=== PATIENT | male | born 1995 | race African-American/Black ===

== ENCOUNTER 2018-11-23 21:55 | Emergency (ER) | payer BC, OTHER ==
[2018-11-23 23:27] LABS: Absolute Lymphocytes (CBC) 2.1 K/uL (0.7-4.9); Absolute Monocytes 1.3 K/uL (0.1-1.3); Absolute Neutrophil 11.1 K/uL (1.8-8.0); Basophils % 0.2 % (0-1.3); Eosinophils % 0.6 % (0-4.4); Hematocrit 43.5 % (39.6-49.0); Lymphocytes % 14.6 % (15.3-44.8); MPV 9.7 fL (7.6-11.3); Protime INR 0.96; RBC Red Blood Cell Count 4.98 M/uL (4.33-5.43)
[2018-11-23] MEDS ORDERED: ONDANSETRON 4 MG/2 ML VIAL ONE (23:40)
[2018-11-23] MEDS ORDERED: NA CHLORIDE 0.9% 1,000 ML ONE (23:40)
[2018-11-23] MEDS ORDERED: FAMOTIDINE 20 MG/2 ML VIAL IV ONE (23:40)
[2018-11-23 23:43] LABS: ALT/SGPT 58 U/L (12-78); AST/SGOT 30 U/L (15-37); Albumin 4.2 g/dL (3.4-5.0); Alkaline Phosphatase 59 U/L (45-117); BUN Blood Urea Nitrogen 21 mg/dL (7-18); Bicarbonate 28 mmol/L (21-32); Bilirubin Direct 0.1 mg/dL (0-0.2); Bilirubin Total 0.4 mg/dL (0.2-1.0); Glucose Level 99 mg/dL (74-106); Lipase 88 U/L (73-393); Magnesium 2.2 mg/dL (1.8-2.4); Potassium 3.7 mmol/L (3.5-5.1); Protein, Total 8.7 g/dL (6.4-8.2); Sodium Level 142 mmol/L (136-145); Troponin (Emerg Dept Use Only) < 0.02 ng/mL (0.0-0.045)
[2018-11-23 23:45] LABS: NT PRO-BNP < 5 pg/mL (<125)
--- NOTE | 2018-11-24 02:35 | EDPHYS ---
Physician Documentation [facility] Name: Zaid Moore Age: 22 yrs Sex: Male : 1995 Arrival Date: 11/23/2018 Time: 21:57 Bed 20 Private MD: Michael Crandall ED Physician Clinton Delgado HPI: 11/23 22:45 This 22 yrs old Black Male presents to ER via Ambulatory with complaints of Chest Pain. cp 22:45 The patient or guardian reports chest pain that is located primarily in the substernal cp area, epigastric area. 22:45 The pain does not radiate. cp 22:45 The chest pain is described as aching. cp 22:45 Duration: The patient or guardian reports multiple episodes, that are intermittent. cp Modifying factors: the symptoms are aggravated by eating. Historical: - Allergies: 22:03 No Known Allergies; lp1 - Home Meds: 22:03 Nexium Oral [Active]; lp1 - PMHx: 22:03 None; lp1 - PSHx: 22:03 Knee surgery; lp1 - Immunization history:: Adult Immunizations up to date. - Social history:: Smoking status: Patient/guardian denies using tobacco. - Ebola Screening: : No symptoms or risks identified at this time. ROS: 23:00 Constitutional: Negative for body aches, chills, fever, poor PO intake. cp 23:00 Eyes: Negative for injury, pain, redness, and discharge. cp 23:00 ENT: Negative for drainage from ear(s), ear pain, sore throat, difficulty swallowing, difficulty handling secretions. 23:00 Cardiovascular: Positive for chest pain, Negative for edema, palpitations. 23:00 Respiratory: Negative for cough, shortness of breath, wheezing. 23:00 Abdomen/GI: Positive for abdominal pain, nausea, vomiting, of the epigastric area, Negative for diarrhea, constipation, dysphagia, hematemesis, black/tarry stool, rectal bleeding. 23:00 Back: Negative for pain at rest, pain with movement, radiated pain. 23:00 : Negative for urinary symptoms, testicular pain 23:00 Skin: Negative for cellulitis, rash. 23:00 Neuro: Negative for altered mental status, headache, syncope, weakness. 23:00 All other systems are negative. Exam: 23:05 Constitutional: The patient appears in no acute distress, alert, awake, cp non-diaphoretic, non-toxic, well developed, well nourished. 23:05 Head/Face: Normocephalic, atraumatic. cp 23:05 Eyes: Periorbital structures: appear normal, Conjunctiva: normal, no exudate, no cp injection, Sclera: no appreciated abnormality, Lids and lashes: appear normal, bilaterally. 23:05 ENT: Nares patent. No nasal discharge, no septal abnormalities noted. Tympanic cp membranes are normal and external auditory canals are clear. Oropharynx with no redness, swelling, or masses, exudates, or evidence of obstruction, uvula midline. Mucous membranes moist. Neck: Trachea midline, no thyromegaly or masses palpated, and no cervical lymphadenopathy. Supple, full range of motion without nuchal rigidity, or vertebral point tenderness. No Meningismus. 23:05 Chest/axilla: Inspection: normal, Palpation: crepitus, is not appreciated, tenderness, that is mild, of the xyphoid area and mid-sternal area. 23:05 Cardiovascular: Rate: normal, Rhythm: regular, Pulses: Pulses are 2+ in right radial artery and left radial artery. Edema: is not appreciated, JVD: is not appreciated. 23:05 Respiratory: the patient does not display signs of respiratory distress, Respirations: normal, no use of accessory muscles, no retractions, no splinting, no tachypnea, labored breathing, is not present, Breath sounds: are clear throughout, no decreased breath sounds, no stridor, no wheezing. 23:05 Abdomen/GI: Inspection: abdomen appears normal, Bowel sounds: active, all quadrants, Palpation: soft, in all quadrants, moderate abdominal tenderness, in the epigastric area, rebound tenderness, is not appreciated, involuntary guarding, is not appreciated. 23:05 Back: pain, is absent, ROM is normal. 23:05 Skin: cellulitis, is not appreciated, no rash present. 23:05 Neuro: Orientation: to person, place \T\ time. Mentation: is normal, Cerebellar function: is grossly normal, Motor: moves all fours, strength is normal, Sensation: is normal. 23:36 ECG was reviewed by the Attending Physician. cp Vital Signs: 22:01 BP 152 / 103; Pulse 95; Resp 18; Temp 99.2(O); Pulse Ox 100% on R/A; Weight 117.93 kg lp1 (R); Height 5 ft. 9 in. (175.26 cm); Pain 9/10; 23:11 BP 142 / 80; Pulse 42; Resp 24; Pulse Ox 99% on R/A; ed1 23:34 BP 134 / 85; Pulse 74; Resp 12; Pulse Ox 100% on 2 lpm NC; Pain 6/10; ed1 11/24 00:44 BP 138 / 71; Pulse 90; Resp 27; Pulse Ox 99% on R/A; Pain 5/10; ed1 01:27 BP 138 / 72; Pulse 82; Resp 15; Pulse Ox 99% on 2 lpm NC; Pain 4/10; ed1 02:04 BP 121 / 75; Pulse 81; Resp 16; Pulse Ox 97% on R/A; Pain 0/10; ed1 11/23 22:01 Body Mass Index 38.39 (117.93 kg, 175.26 cm) lp1 MDM: 11/23 22:09 Patient medically screened. 11/24 02:30 Data reviewed: vital signs, nurses notes, lab test result(s), EKG, radiologic studies, cp CT scan, plain films. 02:30 Differential diagnosis: acute myocardial infarction, acute pericarditis, cholecystitis, cp Cholelithiasis esophagitis, gastritis, gastroesophageal reflux disease (GERD), pericarditis, pneumonia, pneumothorax. Test interpretation: by ED physician or midlevel provider: ECG, plain radiologic studies. Counseling: I had a detailed discussion with the patient and/or guardian regarding: the historical points, exam findings, and any diagnostic results supporting the discharge/admit diagnosis, lab results, radiology results, the need for outpatient follow up, a family practitioner, to return to the emergency department if symptoms worsen or persist or if there are any questions or concerns that arise at home. Response to treatment: the patient's symptoms have mildly improved after treatment, and as a result, I will discharge patient. 11/23 22:54 Order name: Basic Metabolic Panel; Complete Time: 23:47 cp 11/23 23:48 Interpretation: Normal except: BUN 21; CRE 1.43; GFR 74. 11/23 22:54 Order name: CBC with Diff; Complete Time: 23:37 cp 11/23 23:38 Interpretation: Normal except: WBC 14.7; HEATHER% 75.6; LYM% 14.6; NEUT A 11.1. cp 11/23 22:54 Order name: LFT's; Complete Time: 23:47 cp 11/23 23:48 Interpretation: Normal except: TP 8.7; GLOB 4.5; A/G 0.9. cp 11/23 22:54 Order name: Magnesium; Complete Time: 23:47 cp 11/23 22:54 Order name: NT PRO-BNP; Complete Time: 23:47 cp 11/23 22:54 Order name: PT-INR; Complete Time: 23:37 cp / 22:54 Order name: Troponin (emerg Dept Use Only); Complete Time: 23:47 cp 11/23 22:54 Order name: XRAY Chest (1 view) cp 11/23 22:54 Order name: Lipase; Complete Time: 23:47 cp 11/23 22:55 Order name: US Abdomen Limited cp 11/23 23:52 Order name: CT Abd/Pelvis - W/Contrast: no oral contrast cp 11/23 22:09 Order name: EKG; Complete Time: 22:09 cp 11/23 22:09 Order name: EKG - Nurse/Tech; Complete Time: 22:25 cp 11/23 22:54 Order name: Cardiac monitoring; Complete Time: 23:23 cp 11/23 22:54 Order name: IV Saline Lock; Complete Time: 23:23 cp 11/23 22:54 Order name: Labs collected and sent; Complete Time: 23:23 cp 11/23 22:54 Order name: O2 Per Protocol; Complete Time: 23:23 cp 11/23 22:54 Order name: O2 Sat Monitoring; Complete Time: 23:23 cp 11/23 22:55 Order name: NPO; Complete Time: 23:16 cp EC/19 23:36 Rate is 90 beats/min. Rhythm is regular. TN interval is normal. QRS interval is normal. cp QT interval is normal. T waves are Flattened in lead III. Interpreted by me. Reviewed by me. Administered Medications: 23:33 Drug: Pepcid 20 mg Route: IVP; Site: right antecubital; ed1 11/24 01:29 Follow up: Response: No adverse reaction ed1 11/23 23:33 Drug: Zofran 4 mg Route: IVP; Site: right antecubital; ed1 11/24 01:29 Follow up: Response: No adverse reaction; Nausea is decreased ed1 11/23 23:34 Drug: NS 0.9% 1000 ml Route: IV; Rate: 1 bolus; Site: right antecubital; ed1 11/24 01:29 Follow up: IV Status: Completed infusion; IV Intake: 1000ml ed1 Disposition: 06:12 Co-signature as Attending Physician, Clinton Delgado MD I agree with the assessment and tw4 plan of care. Disposition: 11/24/18 02:34 Discharged to Home. Impression: Epigastric pain, Other chest pain. - Condition is Stable. - Discharge Instructions: Nonspecific Chest Pain, Gastroesophageal Reflux Disease, Adult. - Prescriptions for Carafate 1 gram Oral Tablet - take 2 tablets by ORAL route every 12 hours take on an empty stomach, beginning on waking and last dose at bedtime. dissolve in small amount warm water prior to ingestion; 100 tablet. - Work release form, Medication Reconciliation Form, Thank You Letter, Antibiotic Education, Prescription Opioid Use form. - Follow up: Osmin Busch MD; When: 2 - 3 days; Reason: Recheck today's complaints. - Problem is new. - Symptoms have improved. Signatures: Dispatcher [employer] EDMS Deborah Matos RN RN ed1 Prudence Arias RN RN lp1 Farhad Hayes PA PA cp Wadley, Terrence, MD MD tw4 Corrections: (The following items were deleted from the chart) 02:47 02:34 11/24/2018 02:34 Discharged to Home. Impression: Epigastric pain; Other chest ed1 pain. Condition is Stable. Forms are Medication Reconciliation Form, Thank You Letter, Antibiotic Education, Prescription Opioid Use. Follow up: Osmin Busch; When: 2 - 3 days; Reason: Recheck today's complaints. Problem is new. Symptoms have improved. cp
--- NOTE | 2018-11-24 02:35 | ER ---
Nurse's Notes [facility] Name: Zaid Moore Age: 22 yrs Sex: Male : 1995 Arrival Date: 11/23/2018 Time: 21:57 Bed 20 Private MD: Michael Crandall Diagnosis: Epigastric pain;Other chest pain Presentation: 11/23 21:59 Presenting complaint: Patient states: Chest pain on and off for about 2 weeks; States lp1 "It happens anytime I try to eat"; Has been taking Nexium with no relief; Reports nausea, vomiting; Denies fever, diarrhea. Transition of care: patient was not received from another setting of care. Onset of symptoms was November 23, 2018. Risk Assessment: Do you want to hurt yourself or someone else? Patient reports no desire to harm self or others. Initial Sepsis Screen: Does the patient meet any 2 criteria? No. Patient's initial sepsis screen is negative. Does the patient have a suspected source of infection? No. Patient's initial sepsis screen is negative. Care prior to arrival: None. 21:59 Method Of Arrival: Ambulatory lp1 21:59 Acuity: MORENA 3 lp1 Historical: - Allergies: 22:03 No Known Allergies; lp1 - Home Meds: 22:03 Nexium Oral [Active]; lp1 - PMHx: 22:03 None; lp1 - PSHx: 22:03 Knee surgery; lp1 - Immunization history:: Adult Immunizations up to date. - Social history:: Smoking status: Patient/guardian denies using tobacco. - Ebola Screening: : No symptoms or risks identified at this time. Screenin:03 Abuse screen: Denies threats or abuse. Denies injuries from another. Nutritional ed1 screening: No deficits noted. Tuberculosis screening: No symptoms or risk factors identified. Fall Risk None identified. Assessment: 22:03 General: Appears uncomfortable, Behavior is calm, cooperative. Pain: Complains of pain ed1 in epigastric area Pain does not radiate. Pain currently is 6 out of 10 on a pain scale. Quality of pain is described as aching, Pain began 1 day ago. Is continuous. Neuro: Level of Consciousness is awake, alert, obeys commands, Oriented to person, place, time, situation. Cardiovascular: Heart tones S1 S2 present Capillary refill < 3 seconds in bilateral fingers Patient's skin is warm and dry. Respiratory: Airway is patent Respiratory effort is even, unlabored, Respiratory pattern is regular, symmetrical, Breath sounds are clear bilaterally. GI: Abdomen is non-distended, Bowel sounds present X 4 quads. Abd is soft and non tender X 4 quads. Reports nausea, Patient currently denies diarrhea, vomiting. : No signs and/or symptoms were reported regarding the genitourinary system. EENT: No signs and/or symptoms were reported regarding the EENT system. Derm: Skin is intact, is healthy with good turgor, Skin is dry, Skin is normal, Skin temperature is warm. Musculoskeletal: Circulation, motion, and sensation intact. Range of motion: intact in all extremities. 23:11 Reassessment: Pt reports feeling like he is going to pass out. Derm: Skin is ed1 diaphoretic. 23:34 Reassessment: Patient and/or family updated on plan of care and expected duration. Pain ed1 level reassessed. Patient is alert, oriented x 3, equal unlabored respirations, skin warm/dry/pink. Patient states symptoms have improved. 11/24 00:44 Reassessment: Patient appears in no apparent distress at this time. Patient and/or ed1 family updated on plan of care and expected duration. Pain level reassessed. Patient is alert, oriented x 3, equal unlabored respirations, skin warm/dry/pink. Patient states feeling better. Patient states symptoms have improved. 01:27 Reassessment: Patient appears in no apparent distress at this time. Patient and/or ed1 family updated on plan of care and expected duration. Pain level reassessed. Patient is alert, oriented x 3, equal unlabored respirations, skin warm/dry/pink. Patient states feeling better. Patient states symptoms have improved. 02:04 Reassessment: Patient appears in no apparent distress at this time. Patient and/or ed1 family updated on plan of care and expected duration. Pain level reassessed. Patient is alert, oriented x 3, equal unlabored respirations, skin warm/dry/pink. Patient denies pain at this time. Patient states feeling better. Patient states symptoms have improved. Vital Signs: 11/23 22:01 BP 152 / 103; Pulse 95; Resp 18; Temp 99.2(O); Pulse Ox 100% on R/A; Weight 117.93 kg lp1 (R); Height 5 ft. 9 in. (175.26 cm); Pain 9/10; 23:11 BP 142 / 80; Pulse 42; Resp 24; Pulse Ox 99% on R/A; ed1 23:34 BP 134 / 85; Pulse 74; Resp 12; Pulse Ox 100% on 2 lpm NC; Pain 6/10; ed1 03 00:44 BP 138 / 71; Pulse 90; Resp 27; Pulse Ox 99% on R/A; Pain 5/10; ed1 01:27 BP 138 / 72; Pulse 82; Resp 15; Pulse Ox 99% on 2 lpm NC; Pain 4/10; ed1 02:04 BP 121 / 75; Pulse 81; Resp 16; Pulse Ox 97% on R/A; Pain 0/10; ed1 11/23 22:01 Body Mass Index 38.39 (117.93 kg, 175.26 cm) lp1 ED Course: 11/23 21:57 Patient arrived in ED. es 21:58 Michael Crandall MD is Private Physician. es 22:01 Triage completed. lp1 22:02 Arm band placed on. lp1 22:03 Patient has correct armband on for positive identification. Placed in gown. Bed in low ed1 position. Call light in reach. Side rails up X 1. Adult w/ patient. technology professional on. Pulse ox on. NIBP on. 22:03 Patient maintains SpO2 saturation greater than 95% on room air. ed1 22:09 Farhad Hayes PA is PHCP. cp 22:09 Clinton Delgado MD is Attending Physician. cp 22:13 Deborah Matos, MORGAN is Primary Nurse. ed1 22:25 EKG done, by ED staff, reviewed by Clinton Delgado MD. ed1 23:09 US Abdomen Limited In Process Unspecified. EDMS 23:16 Initial lab(s) drawn, by me, sent to lab. Inserted saline lock: 20 gauge in right ed1 antecubital area, using aseptic technique. Blood collected. 23:29 X-ray completed. Portable x-ray completed in exam room. Patient tolerated procedure kw well. 23:30 XRAY Chest (1 view) In Process Unspecified. EDMS 11/24 00:[address] Scan. ed1 01:[address] Scan. ed1 01:[address] via wheelchair. kw1 01:56 CT completed. Patient tolerated procedure well. Patient moved back from CT. kw1 02:08 CT Abd/Pelvis - W/Contrast: no oral contrast In Process Unspecified. EDMS 02:33 Osmin Busch MD is Referral Physician. cp 02:46 No provider procedures requiring assistance completed. IV discontinued, intact, ed1 bleeding controlled, No redness/swelling at site. Pressure dressing applied. Administered Medications: 03 23:33 Drug: Pepcid 20 mg Route: IVP; Site: right antecubital; ed1 11/24 01:29 Follow up: Response: No adverse reaction ed1 11/23 23:33 Drug: Zofran 4 mg Route: IVP; Site: right antecubital; ed1 11/24 01:29 Follow up: Response: No adverse reaction; Nausea is decreased ed1 11/23 23:34 Drug: NS 0.9% 1000 ml Route: IV; Rate: 1 bolus; Site: right antecubital; ed1 11/24 01:29 Follow up: IV Status: Completed infusion; IV Intake: 1000ml ed1 Intake: 01:29 IV: 1000ml; Total: 1000ml. ed1 Outcome: 02:34 Discharge ordered by MD. cp 02:46 Discharged to home ambulatory, with family. ed1 02:46 Condition: good 02:46 Discharge instructions given to patient, Instructed on discharge instructions, follow up and referral plans. medication usage, Demonstrated understanding of instructions, follow-up care, medications, Prescriptions given X 1. 02:47 Patient left the ED. ed1 Signatures: Dispatcher [employer] EDEnid Mcguire Erika RN RN ed1 Kathryn Solis Laura, RN RN lp1 Farhad Hayes PA PA cp Wilhelm, Kimberly kw1
[2018-11-24 02:54] VITALS: TEMP 99.2
[2018-11-24 03:01] VITALS: BP 121/75; O2SAT 97
--- NOTE | 2018-11-24 07:41 | EKG ---
Test Date: 2018-11-23 Test Time: 22:19:41 Dye Room Helper: SHANITA MEASUREMENT RESULTS: Intervals: Rate: 90 WI: 154 QRSD: 92 QT: 358 QTc: 437 [place]: P: 44 WI: 154 QRS: 14 T: 34 INTERPRETIVE STATEMENTS: Normal sinus rhythm Normal ECG Compared to ECG 01/24/2000 08:10:00 No significant changes Electronically Signed On 11-24-18 07:40:39 CDT by Kelvin Damon
--- NOTE | 2018-11-24 08:17 | RAD REPORT ---
EXAM DESCRIPTION: US - Abdomen Exam Limited - 11/23/2018 11:09 pm CLINICAL HISTORY: Abdominal pain. COMPARISON: None. FINDINGS: The gallbladder wall is not thickened. A gallstone is not seen. The biliary tree is normal caliber. IMPRESSION: Unremarkable gallbladder ultrasound.
--- NOTE | 2018-11-24 08:31 | RAD REPORT ---
EXAM DESCRIPTION: Dejan Single View11/23/2018 11:30 pm CLINICAL HISTORY: Chest pain COMPARISON: none FINDINGS: The lungs appear clear of acute infiltrate. The heart is normal size IMPRESSION: No acute abnormalities displayed
--- NOTE | 2018-11-24 10:54 | RAD REPORT ---
EXAM DESCRIPTION: CT - Abdomen Pelvis W Contrast - 11/24/2018 4:05 am CLINICAL HISTORY: The patient is 22 years old and is Male; EPIGASTRIC PAIN TECHNIQUE: Axial computed tomography images of the abdomen and pelvis with intravenous contrast. S agittal and coronal reformatted images were created and reviewed. This CT exam was performed using one or more of the following dose reduction techniques: automated exposure control, adjustment of t he mA and/or kV according to patient size, and/or use of iterative reconstruction technique. COMPARISON: None. FINDINGS: LUNG BASES: Unremarkable. No mass. No consolidation. ABDOMEN: LIVER: Unremarkable. No mass. GALLBLADDER AND BILE DUCTS: Unremarkable. No calcified stones. No ductal dilation. PANCREAS: Unremarkable. No mass. No ductal dilation. SPLEEN: Unremarkable. No splenomegaly. ADRENALS: Unremarkable. No mass. KIDNEYS AND URETERS: Unremarkable. No solid mass. No hydronephrosis. STOMACH AND BOWEL: Unremarkable. No obstruction. No mucosal thickening. PELVIS: APPENDIX: The appendix is seen and is within normal limits BLADDER: Unremarkable. No mass. REPRODUCTIVE: Unremarkable as visualized. ABDOMEN and PELVIS: INTRAPERITONEAL SPACE: Unremarkable. No free air. No significant fluid collection. BONES/JOINTS: No acute fracture. No dislocation. SOFT TISSUES: Unremarkable. VASCULATURE: Unremarkable. No abdominal aortic aneurysm. LYMPH NODES: Unremarkable. No enlarged lymph nodes. IMPRESSION: No acute abdominal or pelvic abnormality. Electronically signed by: Arnel Garrett DO 11/24/2018 2:14 AM CDT Due to temporary technical issues with the PACS/Fluency reporting system, reports are being signed by the in house radiologist as a courtesy to ensure prompt reporting. The interpreting radiologist is f ully responsible for the content of the report.
== END 2018-11-24 02:47 | disposition home or self-care (01) ==
LOC: ER 21:55
DX: R07.89 Other chest pain (principal)
CPT/HCPCS: 36415; 71045; 74177; 76705; 80048; 80076; 83690; 83735; 83880; 84484; 85025; 85610; 93005; 96361; 96374; 96375; 99285; J2405; J7030; Q9967